=== PATIENT | male | born 1960 | race Caucasian/White ===

== ENCOUNTER 2021-01-26 15:32 | Emergency (ER) | payer MEDICARE, OTHER ==
[~2021-01-26] VITALS: Ht 177.8 cm; Wt 77.1 kg
[2021-01-26 15:40] VITALS: BP 126/78
[2021-01-26] MEDS ORDERED: METFORMIN HCL500 M3 PO (15:42)
[2021-01-26] MEDS ORDERED: FLEXERIL PO (15:43)
[2021-01-26] MEDS ORDERED: LISINOPRIL2.5 M1 PO (15:43)
[2021-01-26] MEDS ORDERED: ZANAFLEX2 M1 PO (15:43)
[2021-01-26] MEDS ORDERED: BYSTOLIC10 MG PO (15:43)
[2021-01-26] MEDS ORDERED: LOVASTATIN 20 M20 MG PO (15:43)
== END 2021-01-26 16:53 | disposition home or self-care (01) ==
LOC: M.ERS 15:32
DX: S61.230A Puncture wound without foreign body of right index finger without damage to nail, initial encounter (principal); E11.9 Type 2 diabetes mellitus without complications; I10 Essential (primary) hypertension; X58.XXXA Exposure to other specified factors, initial encounter; Y93.89 Activity, other specified; Y92.89 Other specified places as the place of occurrence of the external cause; Y99.8 Other external cause status